=== PATIENT | male | born 1935 | race Caucasian/White ===

== ENCOUNTER 2018-12-05 13:44 | Emergency (ER) | payer OTHER ==
[~2018-12-05] VITALS: Ht 177.8 cm; Wt 81.7 kg
[2018-12-05] MEDS ORDERED: DEXA4 PO (14:03)
[2018-12-05] MEDS ORDERED: KETO10 (14:04)
[2018-12-05] MEDS ORDERED: ALBU90OI6 INH (14:04)
[2018-12-05] MEDS ORDERED: GABA100 PO (14:05)
[2018-12-05] MEDS ORDERED: GLIP2.5ER PO (14:05)
[2018-12-05] MEDS ORDERED: ALLO300 PO (14:05)
[2018-12-05] MEDS ORDERED: CODEINE-GUAIFE120 ML (14:05)
[2018-12-05] MEDS ORDERED: LO-DOSE ASPIRIN81 MG PO (14:05)
[2018-12-05] MEDS ORDERED: LEVSOD25 PO (14:06)
[2018-12-05] MEDS ORDERED: LOSA25 PO (14:07)
[2018-12-05] MEDS ORDERED: Ranitidine HCl150 M1 PO (14:08)
[2018-12-05] MEDS ORDERED: MONT4 PO (14:08)
[2018-12-05] MEDS ORDERED: METF500 PO (14:08)
== END 2018-12-05 20:35 | disposition short-term general hospital (02) ==
LOC: ER 13:44
DX: M51.26 Other intervertebral disc displacement, lumbar region (principal); E11.9 Type 2 diabetes mellitus without complications; Z88.0 Allergy status to penicillin; Z88.5 Allergy status to narcotic agent
CPT/HCPCS: 36415; 72148; 99285-25

== ENCOUNTER 2020-08-30 09:22 | Inpatient (IN) | payer OTHER ==
[~2020-08-30] VITALS: Ht 177.8 cm; Wt 79.8 kg
[~2020-08-30 09:22] MED LIST: ALBU90OI6 INH; ALLO300 PO; ASPIR 8181 MG PO; CODEINE-GUAIFE120 ML; DEXA4 PO; GABA100 PO; GLIP2.5ER PO; KETO10; LEVSOD25 PO; LOSA25 PO; METF500 PO; MONT4 PO; Ranitidine HCl150 M1 PO
[2020-08-30 09:48] LABS: BASOPHILS ABSOLUTE AUTO 0.07 K/mm3 (0.00-0.23); BASOPHILS PERCENT AUTO 0 % (0-2); EOSINOPHILS ABSOLUTE AUTO 0.07 K/mm3 (0.00-0.68); EOSINOPHILS PERCENT AUTO 0 % (0-6); Hematocrit 39.6 % (37.0-53.0); Hemoglobin 12.7 g/dL (13.5-17.5); IMMATURE GRAN ABSOLUTE AUTO 0.13 K/mm3 (0.00-0.10); IMMATURE GRAN PERCENT AUTO 1 % (0-1); LYMPHOCYTES ABSOLUTE AUTO 0.47 K/mm3 (0.84-5.20); LYMPHOCYTES PERCENT AUTO 3 % (21-46); MONOCYTES ABSOLUTE AUTO 1.22 K/mm3 (0.16-1.47); MONOCYTES PERCENT AUTO 8 % (4-13); Mean Corpuscular HGB 29.9 pg (26.0-34.0); Mean Corpuscular HGB Conc 32.1 g/dL (31.5-36.5); Mean Corpuscular Volume 93 fL (80-100); Mean Platelet Volume 9.9 fL (9.1-12.4); NEUTROPHILS ABSOLUTE AUTO 14.26 K/mm3 (1.96-9.15); NEUTROPHILS PERCENT AUTO 88 % (41-73); Platelet Count 311 K/mm3 (150-400); RDW Coefficient Variation 14.4 % (11.7-14.2); RDW Standard Deviation 49.4 fL (35.1-46.3); Red Blood Cell Count 4.25 M/mm3 (4.30-5.90); White Blood Cell Count 16.22 K/mm3 (4.00-11.30)
[2020-08-30 10:10] LABS: Alanine Aminotransfer (ALT/SGP 32 U/L (12-78); Albumin, Blood 2.9 g/dL (3.4-5.0); Albumin/Globulin Ratio 0.6 (0.8-1.8); Alk Phos 78 U/L (50-136); Anion Gap 11 mmol/L (6-16); Aspartate Aminotrans (AST/SGOT 34 U/L (12-37); Bilirubin, Total 1.7 mg/dL (0.1-1.0); Blood Urea Nitrogen 25 mg/dL (8-24); Bun/Creatinine Ratio 22.1 (12.0-20.0); CO2, Blood 22 mmol/L (21-32); Calcium, Blood 8.9 mg/dL (8.5-10.1); Chloride, Blood 107 mmol/L (98-108); Creatinine, Blood 1.13 mg/dL (0.60-1.20); Globulin, Blood 4.7 g/dL (2.2-4.0); Glomerular Filtration Rate >60 (60-); Glucose, Blood 147 mg/dL (70-99); Potassium, Blood 3.7 mmol/L (3.5-5.5); Sodium, Blood 140 mmol/L (136-145); Total Protein, Blood 7.6 g/dL (6.4-8.2); Troponin I 0.038 ng/mL (0.000-0.040)
[2020-08-30] MEDS ORDERED: LOSA50 PO (11:58)
[2020-08-30] MEDS ORDERED: TAMSULOSIN HCL0.4 M1 PO (11:59)
[2020-08-30] MEDS ORDERED: METF500 PO (12:00)
[2020-08-30] MEDS ORDERED: SYNTHROID50 MC1 PO (12:02)
[2020-08-30] MEDS ORDERED: EUTHYROX50 MCG PO (12:05)
[2020-08-30 12:38] LABS: Adenovirus Not Detected (NOT DETECT); Bordetella pertussis Not Detected (NOT DETECT); Chlamydophila pneumoniae Not Detected (NOT DETECT); Coronavirus 229E Not Detected (NOT DETECT); Coronavirus HKU1 Not Detected (NOT DETECT); Coronavirus NL63 Not Detected (NOT DETECT); Coronavirus OC43 Not Detected (NOT DETECT); Human Metapneumovirus Not Detected (NOT DETECT); Human Rhinovirus/Enterovirus Not Detected (NOT DETECT); Influenza A/2009-H1 Not Detected (NOT DETECT); Influenza A/H1 Not Detected (NOT DETECT); Influenza A/H3 Not Detected (NOT DETECT); Influenza B Not Detected (NOT DETECT); Mycoplasma pneumoniae Not Detected (NOT DETECT); Parainfluenza Virus 1 Not Detected (NOT DETECT); Parainfluenza Virus 2 Not Detected (NOT DETECT); Parainfluenza Virus 3 Not Detected (NOT DETECT); Parainfluenza Virus 4 Not Detected (NOT DETECT); Respiratory Syncytial Virus Not Detected (NOT DETECT); SARS-Cov-2 (COVID-19), BioFire Not Detected (NOT DETECT)
[2020-08-30 16:30] LABS: U Amphetamine Screen Not Detected; U Barbituate Screen Not Detected; U Benzodiazapine Screen Not Detected; U Buprenorphine Screen Not Detected; U Cannabinoids Screen Not Detected; U Cocaine Screen Not Detected; U Methadone Screen Not Detected; U Methamphetamine Screen Not Detected; U Opiates Screen Not Detected; U Oxycodone Screen Not Detected; U Phencyclidine Screen Not Detected; U Propoxyphene Screen Not Detected
--- NOTE | 2020-08-30 16:44 | NUR ---
Echocardiogram performed by Dulce Bañuelos under Chris Lea's supervision.
--- NOTE | 2020-08-30 19:57 | NUR ---
SHIFT SUMMARY: PT IS ER ADMIT FOR SEPSIS AND INCREASING SOB X3 DAYS. PT IS A&OX4, TACHYPNEIC, PLACED ON BIPAP IN ER AND TOLERATING WELL, TRANSITIONS TO 4L/MIN VIA NC AT TIMES. NSR ON MONITOR, PT DENIES CP. ECHO COMPLETE AFTER PT ARRIVES TO ROOM. REPORT HAS BEEN GIVEN TO JAE SALEH.
--- NOTE | 2020-08-31 01:36 | NUR ---
LAB COMMUNICATION ROLF FROM LAB INFORMED THIS NURSE THAT PREVIOUS SPUTUM SAMPLE WAS NOT ACCEPTABLE FOR A CULTURE & ASKED FOR IT TO BE REORDERED FOR CULTURE. ASKED PT IF HE WOULD BE ABLE TO COUGH ANYTHING UP & STATES NOT @THIS TIME, HE ONLY HAS A DRY NONPRODUCTIVE COUGH. WILL MONITOR.
[2020-08-31 04:15] LABS: BASOPHILS ABSOLUTE AUTO 0.01 K/mm3 (0.00-0.23); BASOPHILS PERCENT AUTO 0 % (0-2); EOSINOPHILS PERCENT AUTO 0 % (0-6); Hemoglobin 11.2 g/dL (13.5-17.5); IMMATURE GRAN ABSOLUTE AUTO 0.08 K/mm3 (0.00-0.10); IMMATURE GRAN PERCENT AUTO 1 % (0-1); LYMPHOCYTES ABSOLUTE AUTO 0.44 K/mm3 (0.84-5.20); LYMPHOCYTES PERCENT AUTO 4 % (21-46); MONOCYTES ABSOLUTE AUTO 0.26 K/mm3 (0.16-1.47); MONOCYTES PERCENT AUTO 2 % (4-13); Mean Corpuscular HGB 30.2 pg (26.0-34.0); Mean Corpuscular HGB Conc 32.9 g/dL (31.5-36.5); Mean Corpuscular Volume 92 fL (80-100); Mean Platelet Volume 10.7 fL (9.1-12.4); NEUTROPHILS ABSOLUTE AUTO 11.96 K/mm3 (1.96-9.15); NEUTROPHILS PERCENT AUTO 94 % (41-73); Platelet Count 313 K/mm3 (150-400); RDW Coefficient Variation 14.1 % (11.7-14.2); RDW Standard Deviation 47.7 fL (35.1-46.3); Red Blood Cell Count 3.71 M/mm3 (4.30-5.90); White Blood Cell Count 12.75 K/mm3 (4.00-11.30)
[2020-08-31 04:39] LABS: Albumin, Blood 2.5 g/dL (3.4-5.0); Albumin/Globulin Ratio 0.6 (0.8-1.8); Bilirubin, Total 0.8 mg/dL (0.1-1.0); Bun/Creatinine Ratio 29.6 (12.0-20.0); Calcium, Blood 8.8 mg/dL (8.5-10.1); Creatinine, Blood 1.25 mg/dL (0.60-1.20); Globulin, Blood 4.5 g/dL (2.2-4.0); Potassium, Blood 4.2 mmol/L (3.5-5.5)
--- NOTE | 2020-08-31 04:59 | NUR ---
SHIFT SUMMARY AOX4. ABLE TO FOLLOW SIMPLE DIRECTIONS & ANSWER QUESTIONS APPROPRIATE. SPO2 DROPS TO LOW 80'S c MINIMAL ACTIVITY @BEGINNING OF SHIFT, INCLUDING TALKING OR REPOSITIONING. SPO2 INCREASES BACK TO 90% WITHIN A FEW MIN. PT ON BIPAP @30% O2. APPEARS DYSPNIC-TACHYPNIC c RR 20-26, GASPING BETWEEN SENTENCES/TALKING, YET PT DENIES ANY DYSPNEA & CONTINUES TALKING, ENCOURAGED PT TO FOCUS ON DEEP BREATHING WHEN CONT PULSE OX ALARMS. LUNGS ARE DIM c CRACKLES IN BASES. TELE RUNNING NSR @67 UNTIL 0420 PT TRENDING SB @55 FOR 30MIN. PT DENIES N/V, REPORTS 4/10 L KNEE PAIN-REPOSITIONED & PLACED PILLOW UNDER KNEE, PT REPORTED THIS HELPED c HIS PAIN. CONT OF URINE. CALL LIGHT IN REACH & PT ABLE TO MAKE NEEDS KNOWN.
--- NOTE | 2020-08-31 11:20 | NUR ---
Pt. is not in the room , doing much better , and is gone for test.
--- NOTE | 2020-08-31 12:03 | NUR ---
Spiritual care visit conducted. Patient tells me about his medical issues and the poor quality of life that he has. He then talks about his and her poor quality of life due to her 6yr long benito with cancer. He also shares about his son who of heart failure linked to decades of alcoholism and his 4 daughters who are healthy and living in 4 different cities. Patient explains about his Rastafari tradition and his appreciation for Father Jelani and the Anointing of the Sick that was performed for him. I had to cut the visit short due to the need for patient's breathing treatment. I normalize patient's experience and provide companionship, therapeutic listening and grief support. Patient responds well and voices appreciation for the visit. I hope to discuss with patient his goals medically and for his communication with his family.
--- NOTE | 2020-08-31 13:40 | NUR ---
PT STATUS CHANGED TO MEDICAL WITH TELE. PT HAS BEEN ON NASAL CANNULA 4L SINCE THE BEGINNING OF THE SHIFT STILL GETS SOB WITH MINIMAL EXERTION, EVEN WITH TALKING DESATS TO 85%, RECOVERS EASILY, BIPAP AT BEDSIDE. THE REST OF THE VITALS STABLE. PT REMAINS ON IV ABO AND STEROIDS FOR COPD EXA AND PNA. CT PE STUDY DONE TODAY NEGATIV FOR ANY PE, AWAITING FOR PROVIDER TO REVIEW. PT STAYED IN BED MOST OF THE SHFIT, NO OTHER COMPLAINS REPORTED. PT USES URINAL FOR VOIDING, ABLE TO REPOSITIONE SELF IN BED. ALL BELONGINGS SENT WITH PT, REPORT GIVEN TO ANGELIC ROWE. PT ACCOMPANIED FOR TRANSFER VIA HOSPITAL BED. PT TRANSFERRED TO RM 328.
--- NOTE | 2020-08-31 18:21 | NUR ---
Shift Summary Received report from Penelope PCU-RN. Patient arrived to unit approx. 1245 to MED 328. Tele: SR 70. Patient desaturates to low 80's with activity, even with eating. 4L O2 to maintain sats above 90% at rest. Dyspnea on exertion. Bipap at bedside. Takes approx. 1 min to rebound back to 90's with coaching to deep breathe. Encouraged IS use. A/Ox3, very conversational. Daughter from [place] was at bedside, questions were answered to her satisfaction. Blood sugars have been high d/t IV steroids, patient on low sliding scale. Afebrile, VSS. Will cont. to monitor and report to oncoming RN.
--- NOTE | 2020-08-31 19:26 | NUR ---
AWAKE, CONTINUOUS O2 PULSE OX IN USE. SATS IN 90'S. HOB ELEVATED. APPEARS TIRED, ASKED FOR CPAP TO BE HOOKED UP. RT NOTIFIED AND CPAP HOOKED UP. WILL CONTINUE TO [id number]. CALL LIGHT IN REACH
--- NOTE | 2020-09-01 04:41 | NUR ---
SHIFT SUMMARY AWAKE AT INTERVALS, OCCASIONALLY PULLING OFF O2 PULSE OX AND CARDIAC LEADS CAUSING ALARMS TO GO OFF AND APPARETLY TRIGGERING ANXIETY DUE TO NOISE OF THE ALARMS. REDIRECTED A FEW TIMES AND LEADS REPLACED. O2 SATS IN THE 90'S. CALL LIGHT IN REACH. ENCOURAGED TO KEEP LEADS IN PLACE.
[2020-09-01 05:15] LABS: BASOPHILS ABSOLUTE AUTO 0.03 K/mm3 (0.00-0.23); BASOPHILS PERCENT AUTO 0 % (0-2); EOSINOPHILS PERCENT AUTO 0 % (0-6); Hematocrit 33.9 % (37.0-53.0); Hemoglobin 11.3 g/dL (13.5-17.5); IMMATURE GRAN PERCENT AUTO 1 % (0-1); LYMPHOCYTES ABSOLUTE AUTO 0.52 K/mm3 (0.84-5.20); LYMPHOCYTES PERCENT AUTO 2 % (21-46); MONOCYTES ABSOLUTE AUTO 0.71 K/mm3 (0.16-1.47); MONOCYTES PERCENT AUTO 3 % (4-13); Mean Corpuscular HGB 30.5 pg (26.0-34.0); Mean Corpuscular HGB Conc 33.3 g/dL (31.5-36.5); Mean Corpuscular Volume 92 fL (80-100); Mean Platelet Volume 10.6 fL (9.1-12.4); NEUTROPHILS ABSOLUTE AUTO 22.21 K/mm3 (1.96-9.15); NEUTROPHILS PERCENT AUTO 94 % (41-73); Platelet Count 316 K/mm3 (150-400); RDW Coefficient Variation 14.3 % (11.7-14.2); White Blood Cell Count 23.67 K/mm3 (4.00-11.30)
[2020-09-01 05:39] LABS: Anion Gap 9 mmol/L (6-16); Blood Urea Nitrogen 47 mg/dL (8-24); Bun/Creatinine Ratio 39.8 (12.0-20.0); CO2, Blood 22 mmol/L (21-32); Chloride, Blood 107 mmol/L (98-108); Creatinine, Blood 1.18 mg/dL (0.60-1.20); Glomerular Filtration Rate >60 (60-); Glucose, Blood 250 mg/dL (70-99); Potassium, Blood 3.9 mmol/L (3.5-5.5); Sodium, Blood 138 mmol/L (136-145)
--- NOTE | 2020-09-01 16:37 | NUR ---
SHIFT SUMMARY- PT A/O X3, CONFUSED AT TIMES. PT DENIES ANY PAIN T/O THE DAY. LS CLEAR/ DIMINISHED IN THE BASES, ON 4-5L N/C. PT WITH SOB AT REST AND TALKS IN SHORT SENTENCES. PT PLACED ON BIPAP THIS EVENING BY RT DUE TO INCREASED RESPIRATIONS, PT TOLERATES BIPAP WELL. TELE SR AT 92. PT STARTED ON IV LASIX, URINATING WELL. PT REMAINS BEDREST AT THIS TIME. BLOOD SUGARS 200-300'S, SLIDING SCALE INSULIN INCREASED TO MEDIUM AND STEROIDS CHANGED TO ORAL. DAUGHTER UPDATED AT BEDSIDE BY THIS RN AND DR RAMOS. NO OTHER ACUTE CHANGES THIS SHIFT.
--- NOTE | 2020-09-02 04:22 | NUR ---
SHIFT SUMMARY PATIENT HAD NO ACUTE CHANGES OBSERVED. AXOX 3, FORGETFUL AT TIMES. PIV REMAINS INTACT. SPORTS MARKETING COORDINATOR REPORTS NSR 73. ON 4L O2 NC AND USES BIPAP AT NIGHT TOLERATING WELL. VSS/AFEBRILE. DENIES PAIN AND N/V. SOB WITH EXERTION. TAKES MEDICATION WHOLE WITH WATER. CALL LIGHT IN REACH. BED IN LOWEST POSITION. WILL CONTINUE TO MONITOR UNTIL DAY SHIFT NURSE ASSUMES CARE.
[2020-09-02 05:21] LABS: BASOPHILS ABSOLUTE AUTO 0.01 K/mm3 (0.00-0.23); BASOPHILS PERCENT AUTO 0 % (0-2); EOSINOPHILS PERCENT AUTO 0 % (0-6); Hematocrit 33.9 % (37.0-53.0); Hemoglobin 11.3 g/dL (13.5-17.5); IMMATURE GRAN ABSOLUTE AUTO 0.15 K/mm3 (0.00-0.10); IMMATURE GRAN PERCENT AUTO 1 % (0-1); LYMPHOCYTES ABSOLUTE AUTO 0.44 K/mm3 (0.84-5.20); LYMPHOCYTES PERCENT AUTO 2 % (21-46); MONOCYTES ABSOLUTE AUTO 0.95 K/mm3 (0.16-1.47); MONOCYTES PERCENT AUTO 5 % (4-13); Mean Corpuscular HGB 30.5 pg (26.0-34.0); Mean Corpuscular HGB Conc 33.3 g/dL (31.5-36.5); Mean Corpuscular Volume 92 fL (80-100); Mean Platelet Volume 10.3 fL (9.1-12.4); NEUTROPHILS ABSOLUTE AUTO 19.42 K/mm3 (1.96-9.15); NEUTROPHILS PERCENT AUTO 93 % (41-73); Platelet Count 309 K/mm3 (150-400); RDW Coefficient Variation 14.4 % (11.7-14.2); RDW Standard Deviation 48.2 fL (35.1-46.3); White Blood Cell Count 20.97 K/mm3 (4.00-11.30)
[2020-09-02 05:38] LABS: Bun/Creatinine Ratio 39.8 (12.0-20.0); Calcium, Blood 8.8 mg/dL (8.5-10.1); Creatinine, Blood 1.33 mg/dL (0.60-1.20); Potassium, Blood 3.7 mmol/L (3.5-5.5)
--- NOTE | 2020-09-02 16:43 | NUR ---
PT CONTINUES TO DESAT WITH EXCERTION. ON 3-4 LITERS OF O2 WITH BREATHING TREATMENTS NEEDED. PT IS ALERT AND FRIENDLY. DAUGHTER IN THIS SHIFT. PT ABLE TO TRANSFER FROM BED TO CHAIR. CALL LIGHT WITHIN REACH.
--- NOTE | 2020-09-03 04:04 | NUR ---
SHIFT SUMMARY ADMITTED FOR SEPSIS/PNEUMONIA, PULMONARY HTN. DNR CODE. PLAN IS FOR DIURESIS & IV ANTIBIOTICS. HX: COPD. PT IS ON 4-5 LPM O2, DESATURATES WITH MVMT. USES A BIPAP @ PM. OK PATIENT. DR HERRERA IS RESPIRATORY CONSULT. ORAL PREDNISONE IS SCHEDULED. NO NEW CONCERNS THIS SHIFT
[2020-09-03 05:24] LABS: Bun/Creatinine Ratio 40.8 (12.0-20.0); Calcium, Blood 8.4 mg/dL (8.5-10.1); Creatinine, Blood 1.25 mg/dL (0.60-1.20); Magnesium, Blood 2.3 mg/dL (1.6-2.4); Potassium, Blood 3.6 mmol/L (3.5-5.5)
[2020-09-03 19:09] LABS: ANA DIRECT Positive (Negative); ANTI-DNA (DS) AB QN <1 IU/mL (0-9); RNP ANTIBODIES 7.6 AI (0.0-0.9); SJOGREN'S ANTI-SS-A <0.2 AI (0.0-0.9); SJOGREN'S ANTI-SS-B <0.2 AI (0.0-0.9); SMITH ANTIBODIES <0.2 AI (0.0-0.9)
[2020-09-04 04:53] LABS: BASOPHILS ABSOLUTE AUTO 0.07 K/mm3 (0.00-0.23); BASOPHILS PERCENT AUTO 1 % (0-2); EOSINOPHILS ABSOLUTE AUTO 0.03 K/mm3 (0.00-0.68); EOSINOPHILS PERCENT AUTO 0 % (0-6); Hemoglobin 12.3 g/dL (13.5-17.5); IMMATURE GRAN ABSOLUTE AUTO 0.35 K/mm3 (0.00-0.10); IMMATURE GRAN PERCENT AUTO 3 % (0-1); LYMPHOCYTES ABSOLUTE AUTO 0.94 K/mm3 (0.84-5.20); LYMPHOCYTES PERCENT AUTO 7 % (21-46); MONOCYTES ABSOLUTE AUTO 1.01 K/mm3 (0.16-1.47); MONOCYTES PERCENT AUTO 7 % (4-13); Mean Corpuscular HGB 30.4 pg (26.0-34.0); Mean Corpuscular HGB Conc 33.2 g/dL (31.5-36.5); Mean Corpuscular Volume 92 fL (80-100); Mean Platelet Volume 10.3 fL (9.1-12.4); NEUTROPHILS ABSOLUTE AUTO 11.21 K/mm3 (1.96-9.15); NEUTROPHILS PERCENT AUTO 82 % (41-73); Platelet Count 330 K/mm3 (150-400); RDW Coefficient Variation 14.1 % (11.7-14.2); RDW Standard Deviation 47.7 fL (35.1-46.3); Red Blood Cell Count 4.04 M/mm3 (4.30-5.90); White Blood Cell Count 13.61 K/mm3 (4.00-11.30)
[2020-09-04 05:17] LABS: Bun/Creatinine Ratio 40.2 (12.0-20.0); Calcium, Blood 8.7 mg/dL (8.5-10.1); Creatinine, Blood 1.32 mg/dL (0.60-1.20); Magnesium, Blood 2.3 mg/dL (1.6-2.4); Potassium, Blood 3.9 mmol/L (3.5-5.5)
--- NOTE | 2020-09-04 05:25 | NUR ---
SHIFT SUMMARY ASSUMED CARE OF PT AT 1900. PT IS A/OX4. HEART SOUNDS REGULAR, TELE SHOWS SINUS TACH PVC PAC @ 112. LUNG SOUNDS HAVE CRACKLES AT THE BASES, PT HAS A PRODUCTIVE COUGH, PT IS ON 3L NC BUT 6L BLEEDIN ON THE BIPAP. PT TOLERATED HIS BIPAP WELL TONIGHT. PT USED THE URINAL AT THE BEDSIDE. PT STATES HE FEELS BETTER THAN HE HAS SINCE HE CAME HERE. CALL LIGHT IN REACH, BED IN LOWEST POSITION.
--- NOTE | 2020-09-04 18:17 | NUR ---
SHIFT SUMMARY PATIENT REPORTS NOT FEELING WELL TODAY YESTERDAY. IN TO MEET WITH PATIENT, NEW ORDERS PLACED AND COMPLETED PER ORDERS. PATIENT IS ALERT, ORIENTED AND ABLE TO MAKE HIS NEEDS KNOWN. PATIENT WORKING ON USING I.S. AND FLUTTER VALVE. PATIENTS DAUGHTER WHO LIVES OUT OF TOWN CAME FOR A VISIT AND RECEIVED UPDATE FROM . ANTICIPATE PATIENT TO DISCHARGE TO [facility] SOON SUNDAY. HE IS CURRENTLY ON 4L VIA IN. PATIENT IS INDEPENDENT TO THE BATHROOM. ENCOURAGED HIM TO USE THE URINAL FOR ACCURATE OUTPUT, HE STATES HE WILL TRY. BED LOW AND LOCKED, CALL LIGHT WITHIN REACH. WILL CONT TO MONITOR UNTIL CHANGE OF SHIFT.
--- NOTE | 2020-09-05 04:35 | NUR ---
SHIFT SUMMARY ASSUMED CARE OF PT AT 1900. PT IS A/OX44. HEART SOUNDS REGULAR, TELE SHOWS SINUS BUT SINUS TACH WITH ACTIVITY AND COUGHING. LUNG SOUNDS HAVE CRACKLES T/O AND EXPIRATORY WHEEZES, PT WAS ON 4L NC BEFORE HE SWITCHED TO THE BIPAP ALL NIGHT. PT USED URINAL T/O THE NIGHT DUE TO EXHAUSTION FROM WALKING TO THE BATHROOM. PT IS CONTINENT AND USES THE URINAL INDEPENDENTLY. NO ACUTE EVENTS DURING THE NIGHT. PT SLEPT T/O THE NIGHT. CALL LIGHT IN REACH, BED IN LOWEST POSTION.
[2020-09-05 05:04] LABS: BASOPHILS ABSOLUTE AUTO 0.08 K/mm3 (0.00-0.23); BASOPHILS PERCENT AUTO 1 % (0-2); EOSINOPHILS PERCENT AUTO 0 % (0-6); Hematocrit 37.7 % (37.0-53.0); Hemoglobin 12.3 g/dL (13.5-17.5); IMMATURE GRAN ABSOLUTE AUTO 0.58 K/mm3 (0.00-0.10); IMMATURE GRAN PERCENT AUTO 4 % (0-1); LYMPHOCYTES ABSOLUTE AUTO 0.52 K/mm3 (0.84-5.20); LYMPHOCYTES PERCENT AUTO 4 % (21-46); MONOCYTES ABSOLUTE AUTO 0.56 K/mm3 (0.16-1.47); MONOCYTES PERCENT AUTO 4 % (4-13); Mean Corpuscular HGB 29.8 pg (26.0-34.0); Mean Corpuscular HGB Conc 32.6 g/dL (31.5-36.5); Mean Corpuscular Volume 91 fL (80-100); Mean Platelet Volume 10.6 fL (9.1-12.4); NEUTROPHILS ABSOLUTE AUTO 12.96 K/mm3 (1.96-9.15); NEUTROPHILS PERCENT AUTO 88 % (41-73); Platelet Count 353 K/mm3 (150-400); RDW Coefficient Variation 13.9 % (11.7-14.2); RDW Standard Deviation 47.1 fL (35.1-46.3); Red Blood Cell Count 4.13 M/mm3 (4.30-5.90)
[2020-09-05 08:05] LABS: Anion Gap 5 mmol/L (6-16); Blood Urea Nitrogen 55 mg/dL (8-24); Bun/Creatinine Ratio 45.1 (12.0-20.0); CO2, Blood 30 mmol/L (21-32); Calcium, Blood 8.9 mg/dL (8.5-10.1); Chloride, Blood 101 mmol/L (98-108); Creatinine, Blood 1.22 mg/dL (0.60-1.20); Glomerular Filtration Rate >60 (60-); Glucose, Blood 322 mg/dL (70-99); Potassium, Blood 4.2 mmol/L (3.5-5.5); Sodium, Blood 136 mmol/L (136-145)
--- NOTE | 2020-09-05 18:45 | NUR ---
PATIENT A/OX4, UP WITH FWW AND SBA TO RESTROOM TODAY. VSS, ON 2LO2 TO MAINTAIN SATS. TOLERATING ADA DIET. ACHS BLOOD SUGARS, COVERAGE PER SS. SOB IMRPOVING THROUGHOUT THE DAY, ABLE TO WEAN FROM 4LO2 TO 2LO2 VIA NC. CPAP AT NIGHT WITH O2 BLEED IN. SKIN INTACT. DAUGHTER CHILO AT BEDSIDE THIS EVENING AND WOULD LIKE TO SPEAK WITH CRANE FOLLOWER ABOUT TRANSFERRING HER DAD TO [place] IF A SNF IS NEEDED. PATIENT AND HIS WILL BE MOVING TO [place] TO LIVE NEAR THERE DAUGHTER. MESSAGE LEFT WITH KIMBERLY SINGER, CRANE FOLLOWER TO FOLLOW UP ON THIS TOMORROW.
--- NOTE | 2020-09-06 04:10 | NUR ---
SHIFT SUMMARY ASSUMED CARE OF PT AT 1900. PT IS A/OX4. HEART SOUNDS REGULAR, LUNG SOUNDS HAVE CRACKLES AT THE BASES, PT IS ON 2L NC, PT WORE BIPAP T/O THE NIGHT. PT WAS CONTIENT T/O THE NIGHT, PT USED THE URINAL. NO ACUTE EVENTS DURING THE NIGHT. PT SLEPT T/O THE NIGHT. CALL LIGHT IN REACH, BED IN LOWEST POSITON.
[2020-09-06 05:17] LABS: BASOPHILS ABSOLUTE AUTO 0.09 K/mm3 (0.00-0.23); BASOPHILS PERCENT AUTO 0 % (0-2); EOSINOPHILS ABSOLUTE AUTO 0.02 K/mm3 (0.00-0.68); EOSINOPHILS PERCENT AUTO 0 % (0-6); Hematocrit 39.6 % (37.0-53.0); IMMATURE GRAN ABSOLUTE AUTO 0.71 K/mm3 (0.00-0.10); IMMATURE GRAN PERCENT AUTO 3 % (0-1); LYMPHOCYTES ABSOLUTE AUTO 1.11 K/mm3 (0.84-5.20); LYMPHOCYTES PERCENT AUTO 5 % (21-46); MONOCYTES ABSOLUTE AUTO 1.32 K/mm3 (0.16-1.47); MONOCYTES PERCENT AUTO 6 % (4-13); Mean Corpuscular HGB 30.3 pg (26.0-34.0); Mean Corpuscular HGB Conc 32.8 g/dL (31.5-36.5); Mean Corpuscular Volume 92 fL (80-100); Mean Platelet Volume 10.7 fL (9.1-12.4); NEUTROPHILS ABSOLUTE AUTO 17.49 K/mm3 (1.96-9.15); NEUTROPHILS PERCENT AUTO 84 % (41-73); Platelet Count 364 K/mm3 (150-400); RDW Coefficient Variation 14.1 % (11.7-14.2); RDW Standard Deviation 47.1 fL (35.1-46.3); Red Blood Cell Count 4.29 M/mm3 (4.30-5.90); White Blood Cell Count 20.74 K/mm3 (4.00-11.30)
[2020-09-06 05:44] LABS: Anion Gap 7 mmol/L (6-16); Blood Urea Nitrogen 61 mg/dL (8-24); CO2, Blood 31 mmol/L (21-32); Calcium, Blood 8.8 mg/dL (8.5-10.1); Chloride, Blood 100 mmol/L (98-108); Creatinine, Blood 1.22 mg/dL (0.60-1.20); Glomerular Filtration Rate >60 (60-); Glucose, Blood 231 mg/dL (70-99); Potassium, Blood 4.2 mmol/L (3.5-5.5); Sodium, Blood 138 mmol/L (136-145)
--- NOTE | 2020-09-06 11:03 | NUR ---
Met Pt. lying in bed resting, he reports to be doing much better. Encoouraged pt. ,offered prayers.
--- NOTE | 2020-09-06 17:04 | NUR ---
PT AOX4 AND COOPERATIVE OF CARE. PT WAS FEELING REALLY TIRED AT START OF SHIFT. THIS CHAIR SPRINGER WAS IN ROOM WHEN PT STATED HE HAD MILD CHEST PAIN HE RATED AT A 3. DR RAMOS ARRIVED TO ROOM AND ORDERED AN EKG WELL TWO TROPONIN LEVELS. PT'S PAIN RESOLVED SOON AFTER AND PT STATED HE FELT FINE. PT DID NOT EAT HIS BREAKFAST, BUT WAS READY TO EAT WELL AT LUNCH TIME. PT HAS DENIED PAIN FOR THE REST OF HIS SHIFT. WILL CONTINUE TO MONITOR CALL LIGHT IS WITHIN REACH.
[2020-09-06 23:09] LABS: CCP ANTIBODIES IGG/IGA 79 units (0-19)
--- NOTE | 2020-09-07 04:57 | NUR ---
SHIFT SUMMARY A/O, ABLE TO MAKE NEEDS KNOWN. COOPERATIVE WITH CARE. CALLS AND ANSWERS QUESTIONS APPROPRIATELY. NO C/O PAIN/DISCOMFORT THIS SHIFT. REMINDED TO UTILIZED INCENTIVE SPIROMETER AND FLUTTER VALVE WHILE AWAKE. CONTINUES WITH 2L VIA NC WITH NOTED DYSPNEA. TELEMETRY RUNNING SR IN 60s PER PCU ELECTRICAL CONTINUITY INSPECTOR. APPEARED TO REST MUCH OF THE NIGHT. NO ACUTE CHANGES NOTED. BED REMAINS IN LOWEST POSITION. CALL LIGHT AND BELONGINGS WITHIN REACH. REPORT TO ONCOMING RN.
[2020-09-07 05:21] LABS: BASOPHILS ABSOLUTE AUTO 0.06 K/mm3 (0.00-0.23); BASOPHILS PERCENT AUTO 0 % (0-2); EOSINOPHILS ABSOLUTE AUTO 0.01 K/mm3 (0.00-0.68); EOSINOPHILS PERCENT AUTO 0 % (0-6); Hematocrit 40.6 % (37.0-53.0); Hemoglobin 13.3 g/dL (13.5-17.5); IMMATURE GRAN ABSOLUTE AUTO 0.64 K/mm3 (0.00-0.10); IMMATURE GRAN PERCENT AUTO 3 % (0-1); LYMPHOCYTES ABSOLUTE AUTO 0.91 K/mm3 (0.84-5.20); LYMPHOCYTES PERCENT AUTO 5 % (21-46); MONOCYTES ABSOLUTE AUTO 1.16 K/mm3 (0.16-1.47); MONOCYTES PERCENT AUTO 6 % (4-13); Mean Corpuscular HGB 29.8 pg (26.0-34.0); Mean Corpuscular HGB Conc 32.8 g/dL (31.5-36.5); Mean Corpuscular Volume 91 fL (80-100); Mean Platelet Volume 10.9 fL (9.1-12.4); NEUTROPHILS ABSOLUTE AUTO 15.83 K/mm3 (1.96-9.15); NEUTROPHILS PERCENT AUTO 85 % (41-73); Platelet Count 399 K/mm3 (150-400); RDW Coefficient Variation 13.8 % (11.7-14.2); RDW Standard Deviation 46.5 fL (35.1-46.3); Red Blood Cell Count 4.46 M/mm3 (4.30-5.90); White Blood Cell Count 18.61 K/mm3 (4.00-11.30)
[2020-09-07 05:42] LABS: Bun/Creatinine Ratio 45.8 (12.0-20.0); Calcium, Blood 8.9 mg/dL (8.5-10.1); Creatinine, Blood 1.42 mg/dL (0.60-1.20); Potassium, Blood 4.2 mmol/L (3.5-5.5)
--- NOTE | 2020-09-07 07:15 | NUR ---
Pt gave me permission to be his student nurse.
--- NOTE | 2020-09-07 13:42 | NUR ---
Pt. is lying in bed .he reports to be doing much better encouraged pt and prayed for him.
--- NOTE | 2020-09-07 17:23 | NUR ---
PT AOX4 AND COOPERATIVE OF CARE. PT USING CALL LIGHT APPROPRIATELY. PT HAS BEEN AFEBRILE ALL DAY THEN THIS AFTERNOON SLIGHT RAISE TO 99.0. PT IS RECIEVING IV ANTIBOTICS. NO DISTRESS NOTED AT THIS TIME. PT HAS NOT BEEN ABLE TO PASS ANY STONES IN URINE. WILL CONTINUE TO MONITOR.
--- NOTE | 2020-09-07 17:27 | NUR ---
PT AOX4 AND COOPERATIVE OF CARE. PT STATED HE FELT MUCH BETTER AT THE START OF SHIFT TODAY. PT'S LS ARE LOUDER WITH CRACKLES AND THROUGHOUT CONFIRMED BY RT. PT STILL WANTS TO DESAT INTO THE 80s WHEN HE IS TRANSFERING TO CHAIR OR SHOWER. PT SEEMS TO RECOVER AFTER HE IS SITTING STILL AND TOLD TO FOCUS ON BREATHING THROUGH HIS NOSE. PT ALSO IS COUGHING MORE WHEN HE IS UP IN HIS CHAIR. PT HAS BEEN ENCOURAGE TO USE FLUTTER VALVE AND HE WAS TREATED WITH COUGH MEDICINE. DUE TO HIS HEAVY COUGHING HE HAS NOT TOLERATED REALLY LONG LENGTHS OF TIME IN HIS CHAIR. PT WORKED WITH BOTH PHYSICAL THERAPY AND OT DESATING WITH BOTH OF THEM. PT DOING WELL AT THIS TIME WILL CONTINUE TO MONITOR.
--- NOTE | 2020-09-07 19:05 | NUR ---
ASSUMED CARE RECEIVED REPORT FROM AJE LPOEZ. PT RESTING IN BED COMFORTABLY, NO S/S ACUTE DISTRESS NOTED, O2 SATS STABLE ON 2.5L/NC. PT DENIES PAIN/DISCOMFORT OR NEEDS AT THIS TIME. CALL LIGHT, POSSESSIONS IN REACH, CONTINUE TO MONITOR.
--- NOTE | 2020-09-07 21:50 | NUR ---
SPOKE TO AUGUSTUS FREDERICK REGARDING PT'S CBG READING. ORDERS RECEIVED. CONTINUE TO MONITOR.
--- NOTE | 2020-09-08 04:33 | NUR ---
SHIFT SUMMARY PT ASLEEP, NO S/S DISTRESS NOTED. VS REVIEWED, WNL. O2 SATS STABLE ON BIPAP T/O NIGHT; NO C/O SOB, DYSPNEA. NO ACUTE CHANGES IN CONDITION NOTED. PT DENIES PAIN, NEEDS AT THIS TIME. CALL LIGHT, POSSESSIONS IN REACH, BED ALARM ON. WILL CONTINUE TO MONITOR UNTIL REPORT GIVEN TO DAY RN.
[2020-09-08 08:04] LABS: BASOPHILS ABSOLUTE AUTO 0.06 K/mm3 (0.00-0.23); BASOPHILS PERCENT AUTO 0 % (0-2); EOSINOPHILS ABSOLUTE AUTO 0.01 K/mm3 (0.00-0.68); EOSINOPHILS PERCENT AUTO 0 % (0-6); Hematocrit 39.7 % (37.0-53.0); Hemoglobin 13.1 g/dL (13.5-17.5); IMMATURE GRAN ABSOLUTE AUTO 0.74 K/mm3 (0.00-0.10); IMMATURE GRAN PERCENT AUTO 4 % (0-1); LYMPHOCYTES ABSOLUTE AUTO 1.15 K/mm3 (0.84-5.20); LYMPHOCYTES PERCENT AUTO 7 % (21-46); MONOCYTES PERCENT AUTO 7 % (4-13); Mean Corpuscular HGB 30.5 pg (26.0-34.0); Mean Corpuscular Volume 93 fL (80-100); Mean Platelet Volume 10.9 fL (9.1-12.4); NEUTROPHILS ABSOLUTE AUTO 14.53 K/mm3 (1.96-9.15); NEUTROPHILS PERCENT AUTO 82 % (41-73); Platelet Count 373 K/mm3 (150-400); RDW Coefficient Variation 13.8 % (11.7-14.2); RDW Standard Deviation 46.7 fL (35.1-46.3); Red Blood Cell Count 4.29 M/mm3 (4.30-5.90); White Blood Cell Count 17.79 K/mm3 (4.00-11.30)
[2020-09-08 08:26] LABS: Bun/Creatinine Ratio 53.8 (12.0-20.0); Calcium, Blood 8.7 mg/dL (8.5-10.1); Creatinine, Blood 1.32 mg/dL (0.60-1.20); Potassium, Blood 4.2 mmol/L (3.5-5.5)
--- NOTE | 2020-09-08 08:50 | NUR ---
PT PLEASANT COOP A/O X3. DENIES PAIN. BP LOW THIS AM. 92/62. DENIES SYMPTOMS, DENIES LIGHTHEADEDNESS, DENIES DIZZINESS, HOLDING BP MEDS. WILL DISCUSS WITH H/R REG, NO MURMER NOTED. PER TELE NSR AT 63. LUNGS CLEAR, UPPER , LIGHT CRACKLES BASES. ON 2.5 L O2. BT X4 LAST BM 2 DAYS. VOIDS PER URINAL. 1 ASST WITH FWW. BED IN LOW POSITIOIN, CALL LITE IN REACH, CALLS APPROP
--- NOTE | 2020-09-08 18:32 | NUR ---
PT PLEASANT TODAY. DAUGHTER IN TO VISIT TODAY. HE DENIES PAIN. 1 ASST TO BATHROOM. WE ABLE TO TURN O2 DOWN TO 2 L TODAY. TRIALED ON 1L. BUT HE DID BEGIN TO DESAT BELOW 90%. RETURNED TO 2L. NO NEW CONCERHS TODAY. HOPEFUL FOR D.C TO [facility] LIVING IN [place] IN NEXT 2 DAYS. FAMILY ARRANGING WITH CARE MGMT. BED IN LOW POSITION, CALL LITE IN REACH, CALLS APPROP
--- NOTE | 2020-09-09 06:31 | NUR ---
Dominic states he slept poorly overnight, however once he removed his biPap around 0330 this morning, he appeared to sleep straight through. He was wearing 2 liters as a bleed in on biPap and without it as well. Saturations remained in low to mid 90's.. Patient had no complaints of discomfort. Telemetry was in high 50's low 60's by end of shift. Per end of shift report from radioactivity technician, rate has slowed overnight from 70-80's. Patient is pleasant suly cooperative with care, and looking forward to discharge with daughter to a higher level of care in [facility] once found
--- NOTE | 2020-09-09 18:01 | NUR ---
SHIFT SUMMARY NO ACUTE CHANGES THIS SHIFT. PT IS A/O X4; PLEASANT AND COOPERATIVE WITH CARE. VERY [place]. SBA/IND TO THE BATHROOM W/FWW. SAT >92% ON 3 L O2 VIA NC. BIPAP AT NIGHT. WORKS WITH P.T./O.T. PLAN IS TO DISCHARGE TO AN ASSISTED LIVING IN [place], [place] TOMORROW. DAUGHTER IS TO DRIVE THE PATIENT TO [place]. VSS; WILL REPORT TO ENGRAVING OPERATOR RN.
--- NOTE | 2020-09-10 07:45 | NUR ---
Slept well. Dominic is very excited about discharge. Woke around 0600 wanting to get oob and take a shower. Explained that we were about to change staff, and we would let them know he would like to clean up. Only complaint he had was all over itching at start of shift which ended abruptly about 2-3 minutes after he mentioned it to me. He thought it may have been the coban on his wrists, so we had taken it off. Then this AM, he stated the all over itching had started again. I turned his heat which was set on 85 down by 10 degrees. Itching was gone again in about 10 minutes.
--- NOTE | 2020-09-10 19:10 | NUR ---
ASSUMED CARE RECEIVED REPORT FROM JAE SHER. PT RESTING IN CHAIR, NO ACUTE NEEDS OR DISTRESS NOTED AT THIS TIME. CALL LIGHT, POSSESSIONS IN REACH, BED IN LOW POSITION, CONTINUE TO MONITOR.
--- NOTE | 2020-09-11 06:09 | NUR ---
SHIFT SUMMARY PT ASLEEP, NO S/S ACUTE DISTRESS NOTED, RESPS E/U. VS REVIEWED, WNL. O2 SATS STABLE ON BIPAP OR ON 2L/NC. NO C/O SOB, DYSPNEA. PT UP TO BATHROOM WITH SBA. NO ACUTE CHANGES IN CONDITION T/O NIGHT. NO CARDIAC EVENTS REPORTED OVERNIGHT, PT DENIES CP, PRESSURE. NO ACUTE NEEDS ASSESSED AT THIS TIME. CALL LIGHT AND POSSESSIONS IN REACH, BED IN LOW POSITION. CONTINUE TO MONITOR, REPORT OFF TO DAY RN.
--- NOTE | 2020-09-11 18:07 | NUR ---
PT AMBULATED IN HALLWAY THIS AFTERNOON. ESCORTED BY POWER MARKETER WITH O2 BOTTLE. PT STEADY ON HIS FEET. PHYSICAL THERAPY DISCHARGED FROM THEIR SERVICE. TELE DISCONTINUED AND BOX RETURNED TO PCU. NO ACUTE CHANGES NOTED THIS SHIFT, WILL CONTINUE TO MONITOR AND REPORT TO ONCOMING RN.
--- NOTE | 2020-09-11 19:10 | NUR ---
ASSUMED CARE RECEIVED REPORT FROM JAE MALONE. PT RESTING IN BED QUIETLY, NO ACUTE DISTRESS. RESPS E/U, 02 SATS STABLE ON 1L/NC. DENIES NEEDS AT THIS TIME. CALL LIGHT AND POSSESSIONS IN REACH, PT INDEPENDENT IN ROOM. CONTINUE TO MONITOR.
--- NOTE | 2020-09-12 04:12 | NUR ---
SHIFT SUMMARY PT ASLEEP, IN NO ACUTE DISTRESS. HAS BEEN INDEPENDENT IN ROOM T/O SHIFT. WORE CPAP T/O NIGHT, RESPS E/U, O2 SATS STABLE IN MID 90'S; NO C/O SOB, DYSPNEA. NO ACUTE CHANGES IN CONDITION NOTED. DENIES NEEDS AT THIS TIME. CALL LIGHT, POSSESSIONS IN REACH, BED IN LOW POSITION. CONTINUE TO MONITOR UNTIL REPORT GIVEN TO DAY RN.
[2020-09-12 05:19] LABS: BASOPHILS ABSOLUTE AUTO 0.08 K/mm3 (0.00-0.23); BASOPHILS PERCENT AUTO 0 % (0-2); EOSINOPHILS PERCENT AUTO 1 % (0-6); Hematocrit 41.1 % (37.0-53.0); Hemoglobin 13.1 g/dL (13.5-17.5); IMMATURE GRAN ABSOLUTE AUTO 0.56 K/mm3 (0.00-0.10); IMMATURE GRAN PERCENT AUTO 3 % (0-1); LYMPHOCYTES ABSOLUTE AUTO 2.34 K/mm3 (0.84-5.20); LYMPHOCYTES PERCENT AUTO 13 % (21-46); MONOCYTES ABSOLUTE AUTO 1.14 K/mm3 (0.16-1.47); MONOCYTES PERCENT AUTO 6 % (4-13); Mean Corpuscular HGB 29.5 pg (26.0-34.0); Mean Corpuscular HGB Conc 31.9 g/dL (31.5-36.5); Mean Corpuscular Volume 93 fL (80-100); Mean Platelet Volume 11.1 fL (9.1-12.4); NEUTROPHILS ABSOLUTE AUTO 13.52 K/mm3 (1.96-9.15); NEUTROPHILS PERCENT AUTO 76 % (41-73); Platelet Count 305 K/mm3 (150-400); RDW Coefficient Variation 13.5 % (11.7-14.2); RDW Standard Deviation 46.1 fL (35.1-46.3); Red Blood Cell Count 4.44 M/mm3 (4.30-5.90); White Blood Cell Count 17.84 K/mm3 (4.00-11.30)
[2020-09-12 05:41] LABS: Albumin, Blood 2.6 g/dL (3.4-5.0); Anion Gap 5 mmol/L (6-16); Blood Urea Nitrogen 52 mg/dL (8-24); Bun/Creatinine Ratio 36.1 (12.0-20.0); CO2, Blood 31 mmol/L (21-32); Calcium, Blood 8.8 mg/dL (8.5-10.1); Chloride, Blood 101 mmol/L (98-108); Creatinine, Blood 1.44 mg/dL (0.60-1.20); Glomerular Filtration Rate 50 (60-); Glucose, Blood 107 mg/dL (70-99); Phosphorus, Blood 3.6 mg/dL (2.5-4.9); Potassium, Blood 4.2 mmol/L (3.5-5.5); Sodium, Blood 137 mmol/L (136-145)
--- NOTE | 2020-09-12 17:01 | NUR ---
SHIFT SUMMARY PT WOKE FOR SHIFT REPORT. RESTING QUIETLY ON CPAP. NO C/O. PT INDEPENDENT IN RM AND TO BTHRM. PT ADMITTED FOR SEVERE SEPSIS R/T PNM; RESOLVING. PT REMAINS ON 1L O2 VIA NC; WAS ON 2.5L. PT UP TO SHOWER THIS AM AND THEN WENT FOR LONG WALK IN HALLS WITH SBA FROM SULFURIC ACID PLANT OPERATOR. PT DID WELL. PER SHIFT REPORT PT HAD BEEN D/C'D FROM PT/OT DUE TO IMPROVEMENT. PT IS DIABETIC, NORMALLY MANAGING BG WELL AT HOME, PER PT AND DAUGHTER. PT'S CBG'S UP DURING THE DAY D/T PREDNISONE. PT'S DAUGHTER HERE TO VISIT THIS AFTERNOON. PT WANTING DIET TEXTURE ADVANCED FROM [facility] SOFT. PT TIRED OF "MUSHY FOOD". NOTE LEFT FOR DR ON WHITE BOARD. PT ENCOURAGED TO ASK TOMORROW WHEN MAKES ROUNDS. PT REPORTED TO RT TONIGHT THAT HE FELT MORE TIRED THAN YESTERDAY. PT REMINDED THAT HE HAD BEEN UP TO SHOWER WELL GOING FOR A LONG WALK IN HALLS TODAY. DENIED FURTHER NEEDS. CALL LT IN REACH.
--- NOTE | 2020-09-12 19:15 | NUR ---
ASSUMED CARE RECEIVED BEDSIDE REPORT FROM JAE MARTINEZ; PT A&O X 4; MAKES NEEDS KNOWN; VSS; DENIES CHEST PAIN; NO DISTRESS NOTED; CALL LIGHT IN REACH; BED IN LOWEST POSITION.
--- NOTE | 2020-09-12 22:04 | NUR ---
UPDATE HS CBG OF 400; 2100 SEMGLEE ADMINISTERED; DR. RAMOS NOTIFIED ON BLOOD SUGAR; AND ORDER GIVEN TO RECHECK @ 0000, NO NEED TO CALL IF COMING DOWN.
--- NOTE | 2020-09-13 00:42 | NUR ---
UPDATE RECHECK CBG 208; NO FURTHER ACTION
[2020-09-13 05:48] LABS: BASOPHILS ABSOLUTE AUTO 0.05 K/mm3 (0.00-0.23); BASOPHILS PERCENT AUTO 0 % (0-2); EOSINOPHILS PERCENT AUTO 1 % (0-6); Hematocrit 39.7 % (37.0-53.0); Hemoglobin 13.1 g/dL (13.5-17.5); IMMATURE GRAN ABSOLUTE AUTO 0.48 K/mm3 (0.00-0.10); IMMATURE GRAN PERCENT AUTO 3 % (0-1); LYMPHOCYTES ABSOLUTE AUTO 2.33 K/mm3 (0.84-5.20); LYMPHOCYTES PERCENT AUTO 12 % (21-46); MONOCYTES ABSOLUTE AUTO 1.28 K/mm3 (0.16-1.47); MONOCYTES PERCENT AUTO 7 % (4-13); Mean Corpuscular HGB 30.5 pg (26.0-34.0); Mean Corpuscular Volume 92 fL (80-100); Mean Platelet Volume 11.3 fL (9.1-12.4); NEUTROPHILS ABSOLUTE AUTO 14.53 K/mm3 (1.96-9.15); NEUTROPHILS PERCENT AUTO 77 % (41-73); Platelet Count 290 K/mm3 (150-400); RDW Coefficient Variation 13.7 % (11.7-14.2); RDW Standard Deviation 45.9 fL (35.1-46.3); White Blood Cell Count 18.87 K/mm3 (4.00-11.30)
[2020-09-13 06:06] LABS: Anion Gap 6 mmol/L (6-16); Blood Urea Nitrogen 49 mg/dL (8-24); Bun/Creatinine Ratio 40.2 (12.0-20.0); CO2, Blood 30 mmol/L (21-32); Calcium, Blood 8.7 mg/dL (8.5-10.1); Chloride, Blood 100 mmol/L (98-108); Creatinine, Blood 1.22 mg/dL (0.60-1.20); Glomerular Filtration Rate >60 (60-); Glucose, Blood 87 mg/dL (70-99); Potassium, Blood 4.1 mmol/L (3.5-5.5); Sodium, Blood 136 mmol/L (136-145)
--- NOTE | 2020-09-13 06:31 | NUR ---
SHIFT SUMMARY PT A&O X4; PLEASANT & COMPLIANT W/ CARE; VSS; DENIES CHEST PAIN; O2 SATS >93 ON 1L NC; CPAP IN PLACE FOR SLEEPING; INDEPENDENT IN ROOM; CALLS APPROPRIATELY; SLEPT SEVERAL HOURS IN BETWEEN INTERVENTIONS; CALL LIGHT IN REACH; BED IN LOWEST POSITION; WILL CONTIUE TO MONITOR UNTIL HAND OFF TO DAY SHIFT RN.
--- NOTE | 2020-09-13 11:07 | NUR ---
Met pt. sitting in a chair relaxed , pt reports doing fine and much better but he is weak encouraged pt. and offered prayers and spiritual support. Pt. requested for the Eucharist ( Gilbert Jaimes) I promised to bring him that in my next visit.
--- NOTE | 2020-09-13 17:33 | NUR ---
SHIFT SUMMARY PT HAS HAD NO COMPLAINTS THIS SHIFT. PT AMBULATED IN COOK WITH BLOCK HACKER AND PT THIS SHIFT. PT UP INDEPENDENTLY IN ROOM. PT ON 1L MOST OF THE DAY BUT ON ROOM AIR AT THIS TIME, WITH OXYGEN SATURATION 92%. PT REPORTS RT ASSESSING IF PT NEEDS OXYGEN ON. WILL MONITOR THIS. NO ACUTE CHANGES THIS SHIFT. WAITING FOR PLACEMENT IN [place]. CALL LIGHT IN REACH.
--- NOTE | 2020-09-14 06:12 | NUR ---
SHIFT SUMMARY PT TITRATED TO RA BEFORE ASSUMING CARE, SATS REMAINED LOW 90'S; RT APPLIED CPAP W/NO 02 AND PT WAS UNABLE TO MAINTAIN SATS AND HAD TO BE INCREASED TO 3L ON CPAP T/O THE NIGHT. AWOKE @ 0600 AND REMOVED CPAP AND WAS ABLE TO MAINTAIN SATS 90 OR GREATER UNTIL AMBULATING TO BR- SATTING AT 80% WHEN RETURNING TO BED AND WAS NOT SUCCESSFUL AT RECOVERING, APPLIED 2L02, AFTER RECOVERING TO 94 PT WAS ABLE TO REMOVE NC ONCE AGAIN. PT SITTING UP IN BED ON RA AT THIS TIME, CALL LIGHT IN REACH, WILL CONT TO MONITOR UNTIL REPORT GIVEN TO DAY RN.
--- NOTE | 2020-09-14 13:56 | NUR ---
Met pt. in bed resting , pt.responds to be doing well pt. received H C. and I encouraged pt. and offered prayers and spiritual support.
--- NOTE | 2020-09-14 17:14 | NUR ---
SHIFT SUMMARY PT HAS HAD NO COMPLAINTS THIS SHIFT. AMBULATES INDEPENDENTLY IN ROOM. PT HAS HAD A GOOD APPETITE AND HIS DIET HAS BEEN CHANGED TO REG TEXTURE, ADA. PT TOLERATED THE DIET CHANGE WELL. NO ACUTE CHANGES THIS SHIFT. PT WAITING FOR PLACEMENT IN [place]. CALL LIGHT IN REACH. WILL CONTINUE TO MONITOR.
--- NOTE | 2020-09-15 04:42 | NUR ---
SHIFT SUMMARY PT PLEASANT AND COOPERATIVE. HAD A DIFFICULT TIME SLEEPING THIS EVENING. REMAINED ON 1 L O2 VIA NC WITH O2 SATS IN THE LOW 90'S. PT DECLINED TO WEAR CPAP TONIGHT. NAPROXEN GIVEN AT BEDTIME FOR GOUT PAIN. NO ACUTE CHANGES THIS SHIFT. VITAL SIGNS STABLE. PT AWAITING BED AVAILABILITY AT FACILITY IN [place] [facility]AR [facility]. WILL CONTINUE TO MONITOR AND REPORT TO DAY RN.
--- NOTE | 2020-09-15 17:56 | NUR ---
SHIFT SUMMARY PT UP TO CHAIR FOR MEALS. HAS WALKED IN HALLWAY WITH O2 IN PLACE. APPEARS STABLE ON FEET. GETS SOB WITH ACTIVITY BUT REPORTS HE RECOVERS QUICKLY. CONTINUOUS PULSE OX IN PLACE AND FUNCTIONING WHILE IN ROOM. INDEPENDENT WHEN IN ROOM TO BATHROOM AND BACK TO CHAIR OR BED. PLANS FOR ZOOM MEETING WITH FACILITY IN [place] AT 11AM ON SUNDAY WITH TENTATIVE DISCHARGE NEXT SUNDAY EARLY A.M.
--- NOTE | 2020-09-15 19:15 | NUR ---
ASSUMED CARE RECEIVED REPORT FROM JAE PADILLA. PT RESTING IN BED, NO S/S ACUTE DISTRESS NOTED. DENIES NEEDS. CALL LIGHT, POSSESSIONS IN REACH, BED IN LOW POSITION. CONTINUE TO MONITOR.
--- NOTE | 2020-09-16 06:30 | NUR ---
SHIFT SUMMARY PT READING IN BED, NO ACUTE DISTRESS NOTED, RESPS E/U. VS REVIEWED, WNL; O2 SATS STABLE ON 1L/NC. WORE CPAP C 3L O2 BLEED IN. NO ACUTE CHANGES IN CONDITION T/O NIGHT. NO ACUTE NEEDS ASSESSED AT THIS TIME. CALL LIGHT, POSSESSIONS IN REACH. REPORT GIVEN TO JAE PADILLA.
--- NOTE | 2020-09-16 07:00 | NUR ---
CONE TREATER SUMMARY PT ASLEEP, NO ACUTE DISTRESS NOTED. O2 SATS STABLE ON 1L/NC. VS REVIEWED, WNL. REFUSED CPAP T/O NIGHT. INDEPENDENT IN ROOM. NO ACUTE CHANGES IN CONDITION NOTED. PT REPORTED IMPROVEMENT IN GOUT PAIN TO RT AND LT THUMBS. NO ACUTE NEEDS ASSESSED AT THIS TIME. CALL LIGHT AND POSSESSIONS IN REACH, BED IN LOW POSITION. REPORT GIVEN TO JAE AN.
--- NOTE | 2020-09-16 18:47 | NUR ---
SHIFT SUMMARY PT UP TO CHAIR WITH EACH MEAL. INDEPENDENT IN ROOM. SOB WITH ACTIVITY TODAY. REPORTS ITS NO DIFFERENT THAN YESTERDAY. PLANS FOR ZOOM MEETING WITH FACILITY IN [place] TOMORROW AT 1100. DAUGHTER AT BEDSIDE TO VISIT THIS AFTERNOON. REPORTED CHEST PAIN TODAY APPROX LUNCHTIME AFTER NEBULIZER GIVEN. VSS. NOTIFIED AND REQUESTED TO WATCH HIM FOR A PERIOD OF TIME. CHEST PAIN RESOLVED WITHOUT ISSUE.
--- NOTE | 2020-09-16 19:10 | NUR ---
ASSUMED CARE RECEIVED REPORT FROM JAE PADILLA. PT RESTING, IN NO ACUTE DISTRESS. DENIES NEEDS. CALL LIGHT, POSSESSIONS IN REACH. CONTINUE TO MONITOR.
[2020-09-17 06:07] LABS: Bun/Creatinine Ratio 40.4 (12.0-20.0); Calcium, Blood 8.6 mg/dL (8.5-10.1); Creatinine, Blood 1.41 mg/dL (0.60-1.20); Potassium, Blood 4.3 mmol/L (3.5-5.5)
--- NOTE | 2020-09-17 07:00 | NUR ---
SENIOR RESEARCH FELLOW SUMMARY PT ASLEEP, NO ACUTE DISTRESS NOTED. O2 SATS STABLE ON 1L/NC. VS REVIEWED,WNL. REFUSED CPAP T/O NIGHT. INDEPENDENT IN ROOM. NO ACUTE CHANGES IN CONDITION NOTED. PT REPORTED IMPROVEMENT IN GOUT PAIN TO RT AND LT THUMS. NO ACUTE NEEDS ASSESSED AT THIS TIME. CALL LIGHT AND POSSESSIONS IN REACH, BED IN LOW POSITION. REPORT GIVEN TO JAE AN.
--- NOTE | 2020-09-17 17:10 | NUR ---
PATIENT IS ALERT AND ORIENTED AND COOPERATIVE WITH CARE. ON 1L O2 VIA NC WITH O2 SATURATIONS IN 90'S. HOME O2 EVAL ORDERED FOR DISCHARGE. PATIENT IS INDEPENDENT TO THE BATHROOM. NO COMPLAINTS OF PAIN. WILL CONTINUE TO MONITOR.
[2020-09-18 05:40] LABS: Hematocrit 37.6 % (37.0-53.0); Hemoglobin 12.2 g/dL (13.5-17.5); Mean Corpuscular HGB 29.5 pg (26.0-34.0); Mean Corpuscular HGB Conc 32.4 g/dL (31.5-36.5); Mean Corpuscular Volume 91 fL (80-100); Mean Platelet Volume 11.3 fL (9.1-12.4); Platelet Count 223 K/mm3 (150-400); RDW Coefficient Variation 13.6 % (11.7-14.2); RDW Standard Deviation 45.9 fL (35.1-46.3); Red Blood Cell Count 4.13 M/mm3 (4.30-5.90); White Blood Cell Count 13.36 K/mm3 (4.00-11.30)
[2020-09-18 06:05] LABS: BAND PERCENT MAN 1 % (0-8); BASOPHILS PERCENT MAN 0 % (0-2); EOSINOPHILS PERCENT MAN 3 % (0-6); LYMPHOCYTES ABSOLUTE MAN 1.73 K/mm3 (0.84-5.20); LYMPHOCYTES PERCENT MAN 13 % (21-46); MONOCYTES ABSOLUTE MAN 0.93 K/mm3 (0.16-1.47); MONOCYTES PERCENT MAN 7 % (4-13); MYELOCYTE ABSOLUTE MAN 0.13 K/mm3 (0.00-0.00); MYELOCYTE PERCENT MAN 1 % (0-0); NEUTROPHILS ABSOLUTE MAN 10.15 K/mm3 (1.96-9.15); SEG NEUTROPHILS PERCENT MAN 75 % (41-73); TOTAL CELLS COUNTED 100
[2020-09-18 06:10] LABS: Bun/Creatinine Ratio 34.6 (12.0-20.0); Calcium, Blood 8.4 mg/dL (8.5-10.1); Creatinine, Blood 1.33 mg/dL (0.60-1.20); Potassium, Blood 4.1 mmol/L (3.5-5.5)
--- NOTE | 2020-09-18 06:29 | NUR ---
SHIFT SUMMARY- PT. A&O, PLEASANT AND COOPERATIVE WITH CARE. NO ACUTE CHANGES TO CONDITION. AWAKE MOST OF THE SHIFT, DENIED ANY PAIN OR DISCOMFORT. ON 3L NC. ANTICIPATING D/C TO ASSISTED LIVING IN [place] ON SUNDAY. VSS. CALL LIGHT WITHIN REACH AND SIDE RAILS UPX2. WILL CONT TO MONITOR.
[2020-09-18] MEDS ORDERED: FURO40 PO (12:10)
[2020-09-18] MEDS ORDERED: VISBIOME 112.51 EACH PO (12:10)
[2020-09-18] MEDS ORDERED: Prednisone10 MG PO (12:12)
[2020-09-18] MEDS ORDERED: MELA3 PO (12:12)
--- NOTE | 2020-09-18 18:01 | NUR ---
SHIFT SUMMARY PATIENT ALERT AND ORIENTED THIS SHIFT. PATIENT ALTERNATES UP IN BED AND SITTING UP IN THE CHAIR. PATIENT STANDBY ASSIST TO THE BATHROOM THIS SHIFT. PATIENT DENIES PAIN THIS SHIFT. PATIENT COOPERATIVE WITH CARE. PATIENT CALLS APPROPRIATELY. PATIENT CURRENTLY SITTING UP IN THE CHAIR EATING DINNER.
--- NOTE | 2020-09-19 06:39 | NUR ---
SHIFT SUMMARY- NO ACUTE EVENTS OVERNIGHT. PT. RESTED QUIETLY IN BED, NO APPARENT DISTRESS NOTED. NO COMPLAINTS T/O THE SHIFT. COVID TEST DONE THIS AM PER ORDER, RESULT PENDING. VSS. CALL LIGHT WITHIN REACH AND SIDE RAILS UPX2. WILL CONT TO MONITOR.
[2020-09-19 07:37] LABS: Influenza A, PCR Negative (NEGATIVE); Influenza B, PCR Negative (NEGATIVE); Resp Syncytial Virus, PCR Negative (NEGATIVE); SARS-Cov-2 (COVID-19) PCR, MMC Negative (NEGATIVE)
--- NOTE | 2020-09-19 17:22 | NUR ---
SHIFT SUMMARY PATIENT ALERT AND ORIENTED THIS SHIFT. PATIENT ALTERNATES BETWEEN CHAIR AND BED THIS SHIFT. PATIENT STANDBY ASSIST TO THE BATHROOM. PATIENT REMAINS ON 3L O2 THIS SHIFT. PATIENT DENIES PAIN THIS SHIFT. PATIENT AWAITING DISCHARGE TO OUT OF STATE FACILITY IN THE MORNING. PATIENT DENIES FURTHER NEEDS AT THIS TIME. PATIENT CURRENTLY SITTING UP WATCHING TELEVISION.
--- NOTE | 2020-09-20 05:53 | NUR ---
SHIFT SUMMARY- NO ACUTE CHANGES OVERNIGHT. PT. APPEARED TO HAVE SLEPT WELL DURING THE NIGHT, NO APPARENT DISTRESS NOTED. INDEPENEDENTLY HAS BEEN AMBULATING IN THE ROOM W/O DIFFICULTY. REPORTS SOB WITH EXERTION, ON 3L NC. DENIED PAIN OR DISCOMFORT THIS SHIFT. VSS. PLAN FOR D/C TODAY TO ASSISTED LIVING IN [place]. CALL LIGHT WITHIN REACH AND SIDE RAILS UPX2. WILL CONT TO MONITOR.
--- NOTE | 2020-09-20 11:44 | NUR ---
DISCHARGE NOTE PATIENT DISCHARGED TO FACILITY IN [facility]. PATIENT TRANSPORTED BY FAMILY. PATIENT ALERT AND ORIENTED THIS SHIFT. RESPIRATORY THERAPY IN THE ROOM TO EDUCATE PATIENT AND FAMILY ON O2 TANK USAGE FOR TRIP. PATIENT AND FAMILY IN THE ROOM FOR DISCHARGE INSTRUCTIONS. IV REMOVED PRIOR TO DISCHARGE. PATIENT DRESSED INDEPENDENTLY. PATIENT INSTRUCTED TO USE 1L O2 WHILE AT REST AND 3L O2 WITH ACTIVITY. PATIENT INDEPENDENT IN THE ROOM. PATIENT TO VEHICLE VIA WHEELCHAIR BY NURSE.
== END 2020-09-20 11:01 | DRG 871 ==
LOC: ER 09:22 → MEDS 12:36 → PCU 12:36 → MEDS 08-31 12:50 → EDPENDDIS 09-06 08:59 → ENPENDDIS 09-06 08:59 → MEDS 09-11 12:29
PROVIDERS: Emergency Medicine; Hospitalist; Internal Medicine; Internal Medicine Critical Care Medicine; Nurse Practitioner Acute Care; Student in an Organized Health Care Education/Training Program; ADMIT Internal Medicine
PROC: 5A09357 Assistance with Respiratory Ventilation, Less than 24 Consecutive Hours, Continuous Positive Airway Pressure (ICD-10-PCS; principal; 2020-08-30)
DX: A41.9 Sepsis, unspecified organism (principal); J96.01 Acute respiratory failure with hypoxia; R65.21 Severe sepsis with septic shock; I50.31 Acute diastolic (congestive) heart failure; J18.9 Pneumonia, unspecified organism; J44.1 Chronic obstructive pulmonary disease with (acute) exacerbation; J44.0 Chronic obstructive pulmonary disease with (acute) lower respiratory infection; M35.1 Other overlap syndromes; J84.9 Interstitial pulmonary disease, unspecified; Z79.82 Long term (current) use of aspirin; Z79.84 Long term (current) use of oral hypoglycemic drugs; Z87.891 Personal history of nicotine dependence; I27.20 Pulmonary hypertension, unspecified; I07.1 Rheumatic tricuspid insufficiency; K21.9 Gastro-esophageal reflux disease without esophagitis; M1A.00X0 Idiopathic chronic gout, unspecified site, without tophus (tophi); E11.65 Type 2 diabetes mellitus with hyperglycemia; Z66 Do not resuscitate; E03.9 Hypothyroidism, unspecified; R13.10 Dysphagia, unspecified; I11.0 Hypertensive heart disease with heart failure; Z20.822 Contact with and (suspected) exposure to COVID-19
CPT/HCPCS: 0202U; 0241U; 36415; 71045; 71260; 80048; 80053; 80069; 82728; 82947; 83036; 83605; 83735; 83880; 84145; 84484; 85007; 85025; 85027; 85379; 86038; 86200; 86225; 86235; 86430; 87040; 87070; 87205; 87449; 92526; 92610; 93005; 93010; 93306; 94640; 94644; 94660; 94667; 94668; 94760; 94761; 94762; 96365; 96367; 96375; 96376; 97110; 97116; 97162; 97165; 97530; 97535; 99285-25; A9270; J0456; J0696; J1650; J1940; J2920; J2930; J3370; J7030; J7050; J7512; Q9967